=== PATIENT | female | born 1990 | race Caucasian/White ===

== ENCOUNTER 2016-10-14 22:59 | Inpatient (IN) | payer OTHER ==
[2016-10-15] VITALS (10 sets, daily range): BP systolic 115–152; BP diastolic 58–76
--- NOTE | 2016-10-15 15:02 | NUR ---
Pt progressed well in labor this morning, requesting and receiving an epidural block by Dr Serrano. She was complete by 1140 and delivered over an intact perineium by 1152. Vigorous healthy baby girl born. Iniital vaginal bleeding heavy, so 800 mcg misoprostol inserted rectally by physician. Bleeding has toned down to moderate, epidural catheter removed intact, and patient assisted to shower and to clean room. She has had a good lunch, and successfully breastfed baby within the first hour of life. She has had lots of family here to visit and support her. Her spouse has remained at the bedside giving assistance.
[2016-10-16] VITALS: BP 104/66
[2016-10-16 03:50] VITALS: BP 98/55
--- NOTE | 2016-10-16 07:36 | Provider's Discharge Care Plan ---
Problem, Goal, Plan Problem List 1. Term delivered Goals: Improved health/wellness Instructions: Routine care.
--- NOTE | 2016-10-16 07:36 | Provider's Discharge Care Plan ---
Problem, Goal, Plan Problem List 1. Term delivered Goals: Improved health/wellness Instructions: Routine care.
[2016-10-16 07:49] VITALS: BP 111/56
--- NOTE | 2016-10-16 12:20 | NUR ---
Discharge instructions reviewed with pt. Warning signs discussed and pt will call MD for any concerns. 6 week follow up appt made for mother and contact information given. Discharged in w/c with RN as escort, to private vehicle.
== END 2016-10-16 12:20 | disposition home or self-care (01) | DRG 775 ==
LOC: OBC SRH 22:59 → OB SRH 23:01 → OBC SRH 23:31 → OB SRH 23:32
PROVIDERS: ADMIT Family Medicine
PROC: 10E0XZZ Delivery of Products of Conception, External Approach (ICD-10-PCS; principal; 2016-10-15)
DX: O69.81X0 Labor and delivery complicated by cord around neck, without compression, not applicable or unspecified (principal); Z3A.37 37 weeks gestation of pregnancy; Z37.0 Single live birth
CPT/HCPCS: 40011; 83411; 90074; 91162; 91163; 91295